=== PATIENT | female | born 1960 | race Hispanic/Latino ===

== ENCOUNTER 2020-02-09 14:39 | Inpatient (IN) | payer SELFPAY ==
[~2020-02-09] VITALS: Ht 154.9 cm; Wt 99.2 kg
[2020-02-09 16:42] LABS: CREATININE 0.8 mg/dL (0.5-1.5); POTASSIUM 3.8 mmol/L (3.5-5.1)
[2020-02-09 16:49] LABS: ALBUMIN 3.2 g/dL (3.5-5.0); BILIRUBIN,TOTAL 3.5 mg/dL (0.2-1.0); TOTAL PROTEIN, SERUM 6.7 g/dL (6.0-8.3)
[2020-02-09 17:24] LABS: APPEARANCE,URINE Clear (CLEAR); BILIRUBIN,URINE Small (NEGATIVE); COLOR,URINE Dark Yellow (YELLOW); GLUCOSE, URINE (UA) Negative (NEGATIVE); KETONES,URINE Negative (NEGATIVE); LEUKOCYTE ESTERASE ,URINE Negative (NEGATIVE); NITRATE,URINE Negative (NEGATIVE); OCCULT BLOOD,URINE Trace (NEGATIVE); PROTEIN,URINE POS 1+ mg/dL (NEGATIVE)
[2020-02-09 17:29] LABS: INR 0.96 (0.85-1.15); PARTIAL THROMBOPLASTIN TIME 21.4 SEC (26.3-35.5); PROTHROMBIN TIME 10.4 SEC (9.6-11.6)
[2020-02-09 17:31] LABS: BASOPHILS % (AUTO) 0.7 % (0.0-5.0); EOSINOPHILS % (AUTO) 1.4 % (0.0-8.0); LYMPHOCYTES % (AUTO) 9.4 % (21.0-51.0); MEAN CORPUSCULAR HEMOGLOBIN 51.4 pg (27.0-33.0); MEAN CORPUSCULAR HGB CONC 41.4 g/dL (32.0-36.0); MEAN CORPUSCULAR VOLUME 124.3 fL (79-99); MONOCYTES % (AUTO) 8.1 % (3.0-13.0); NEUTROPHILS % (AUTO) 72.5 % (40.0-77.0); NUCLEATED RED BLOOD CELLS 14.3 % (0.0-0.19); PLATELET COUNT (AUTO) 134 K/uL (130-400); RED CELL DISTRIBUTION WIDTH 34.1 % (11.0-15.5); WHITE BLOOD COUNT (AUTO) 8.1 K/uL (4.8-10.8)
[2020-02-09 17:33] LABS: HEMATOCRIT 8.7 % (36-48)
[2020-02-09 17:49] LABS: BACTERIA,URINE Rare /HPF (None Seen); RBC,URINE 0-1 /HPF (0-1); SQUAMOUS EPITHELIAL CELL,UR Few /HPF (0-2); WBC,URINE 0-1 /HPF (0-1)
[2020-02-09 18:04] LABS: BAND NEUTROPHILS % (MANUAL) 19 % (0-2); EOSINOPHILS % (MANUAL) 2 % (1-6); LYMPHOCYTES % (MANUAL) 5 % (22-44); MAN.DIFF COMMENT-IMPRESSION MANUAL DIFFERENTIAL; REACTIVE LYMPHOCYTES 3 % (0-0); SEGMENTED NEUTROPHILS % 71 % (40-70)
[2020-02-09 18:08] LABS: PLATELET MORPHOLOGY COMMENT LARGE PLTS PRESENT
[2020-02-09] MEDS ORDERED: ONDANSETRON HCL 4 MG/2 ML VIAL IV PRN (18:30)
[2020-02-09] MEDS: LACTATED RINGERS 1000ML 1,000 ML IV SCH (20:00)
[2020-02-09] MEDS ORDERED: LACTATED RINGERS 1000ML 1,000 ML IV ONE (20:09)
[2020-02-09] MEDS: PANTOPRAZOLE 40 MG/VIAL IVP SCH (21:00)
[2020-02-09 23:45] VITALS: BP 132/69
[2020-02-10] MEDS ORDERED: AZIT250T PO (00:57)
[2020-02-10] MEDS ORDERED: GUAI-966 PO (00:57)
[2020-02-10] MEDS ORDERED: MECO10005 PO (00:57)
[2020-02-10] MEDS ORDERED: CHOL200012 PO (00:57)
[2020-02-10] MEDS ORDERED: LEVO150T11 PO (00:57)
[2020-02-10] MEDS ORDERED: FERR325T22 PO (00:57)
[2020-02-10 04:57] VITALS: BP 133/69
[2020-02-10 06:03] LABS: BASOPHILS % (AUTO) 0.4 % (0.0-5.0); MEAN CORPUSCULAR HEMOGLOBIN 53.2 pg (27.0-33.0); MEAN CORPUSCULAR HGB CONC 42.3 g/dL (32.0-36.0); MEAN CORPUSCULAR VOLUME 125.8 fL (79-99); MONOCYTES % (AUTO) 10.5 % (3.0-13.0); NEUTROPHILS % (AUTO) 73.2 % (40.0-77.0); NUCLEATED RED BLOOD CELLS 20.2 % (0.0-0.19); PLATELET COUNT (AUTO) 122 K/uL (130-400); RED BLOOD CELL COUNT(AUTO) 0.62 MIL/uL (4.00-5.50); RED CELL DISTRIBUTION WIDTH 32.9 % (11.0-15.5)
[2020-02-10 06:11] LABS: HEMATOCRIT 7.8 % (36-48)
[2020-02-10 06:24] LABS: ALBUMIN 2.9 g/dL (3.5-5.0); BILIRUBIN,TOTAL 3.8 mg/dL (0.2-1.0); CREATININE 0.7 mg/dL (0.5-1.5); POTASSIUM 3.6 mmol/L (3.5-5.1); THYROID STIMULATING HORMONE 4.39 uIU/mL (0.36-3.74); TOTAL PROTEIN, SERUM 6.2 g/dL (6.0-8.3)
[2020-02-10 07:30] VITALS: BP 133/57
[2020-02-10] MEDS: PANTOPRAZOLE 40 MG/VIAL IVP SCH ×2 (09:37→20:29)
--- NOTE | 2020-02-10 10:05 | NUR ---
GI CONSULT DR DUBOIS IN TO SEE PT
[2020-02-10 11:16] VITALS: BP 127/42
[2020-02-10] MEDS ORDERED: ACETAMINOPHEN 325 MG TAB PO PRN ×2 (11:45)
[2020-02-10] MEDS ORDERED: COMPOUND IV MISC 1 EACH IVSOLN MISC PRN (12:45)
[2020-02-10] MEDS ORDERED: COMPOUND IV REFRIGERATED 1 EACH IVSOLN MISC PRN (12:45)
[2020-02-10] MEDS: DEXAMETHASONE 10MG/ML 1ML VIAL 40 MG in SODIUM CHLORIDE 0.9% 50 ML IV SCH (14:52)
[2020-02-10] MEDS: FOLIC ACID 1 MG TABLET PO SCH (14:52)
[2020-02-10 16:00] VITALS: BP 119/53
[2020-02-10] MEDS: LACTATED RINGERS 1000ML 1,000 ML IV SCH ×2 (16:00→20:33)
--- NOTE | 2020-02-10 19:08 | NUR ---
INITIAL SW spoke with patient. Patient lives with daughter, Corrine. Patient unable to remember daughter's contact information. No home services or DME. Patient is able to complete ADL's independently and drives. PCP is Dr. Rosalie Powers. Pharmacy is [facility] in [place]. DCP is home. Patient has no insurance or benefits. She is a [place] citizen and has worked in the [place]. SW educated patient on [employer] $4 medication program and [facility] $5 medication program. Patient is being assisted by [employer] for financial matters. Addendum: 02/10/20 at 1911 by SATYA VELEZ Amended: Links added.
[2020-02-10 19:15] VITALS: BP 124/66
--- NOTE | 2020-02-10 19:15 | NUR ---
ASSESSMENT PT AAOX4, PLEASANT, COOPERATIVE, DENIES ANY PAIN, DENIES CHEST PAIN, S.O.B. NOTED WITH ACTIVITY. UP TO CHAIR WITHOUT ASSISTANCE, ASSESSMENT COMPLETED, SEE FLOW SHEET.
[2020-02-10 23:21] VITALS: BP 127/64
[2020-02-11 03:52] VITALS: BP 128/55
[2020-02-11] MEDS: LEVOTHYROXINE 150 MCG TABLET PO SCH ×2 (05:38→08:39)
[2020-02-11 06:37] LABS: ALBUMIN 2.7 g/dL (3.5-5.0); BILIRUBIN,TOTAL 4.4 mg/dL (0.2-1.0); CREATININE 0.7 mg/dL (0.5-1.5); POTASSIUM 3.7 mmol/L (3.5-5.1)
[2020-02-11 07:56] VITALS: BP 137/72
[2020-02-11] MEDS: PANTOPRAZOLE 40 MG/VIAL IVP SCH ×2 (08:39→20:20)
[2020-02-11] MEDS: CYANOCOBALAMIN (VITAMIN B-12) 1,000 MCG TABLET PO SCH (08:39)
[2020-02-11] MEDS: DEXAMETHASONE 10MG/ML 1ML VIAL 40 MG in SODIUM CHLORIDE 0.9% 50 ML IV SCH (08:39)
[2020-02-11] MEDS: FOLIC ACID 1 MG TABLET PO SCH (08:39)
[2020-02-11] MEDS: CHOLECALCIFEROL 50 MCG PO SCH (09:00)
[2020-02-11 11:46] VITALS: BP 135/68
[2020-02-11 11:49] LABS: BASOPHILS % (AUTO) 0.3 % (0.0-5.0); EOSINOPHILS % (AUTO) 0.3 % (0.0-8.0); LYMPHOCYTES % (AUTO) 7.1 % (21.0-51.0); MEAN CORPUSCULAR HEMOGLOBIN 49.2 pg (27.0-33.0); MEAN CORPUSCULAR HGB CONC 37.6 g/dL (32.0-36.0); MEAN CORPUSCULAR VOLUME 130.8 fL (79-99); MONOCYTES % (AUTO) 6.4 % (3.0-13.0); NEUTROPHILS % (AUTO) 79.9 % (40.0-77.0); NUCLEATED RED BLOOD CELLS 18.5 % (0.0-0.19); PLATELET COUNT (AUTO) 118 K/uL (130-400); RED BLOOD CELL COUNT(AUTO) 0.65 MIL/uL (4.00-5.50); WHITE BLOOD COUNT (AUTO) 8.7 K/uL (4.8-10.8)
[2020-02-11 11:55] LABS: HEMATOCRIT 8.5 % (36-48)
[2020-02-11 12:29] LABS: BAND NEUTROPHILS % (MANUAL) 4 % (0-2); LYMPHOCYTES % (MANUAL) 15 % (22-44); MAN.DIFF COMMENT-IMPRESSION MANUAL DIFFERENTIAL; MONOCYTES % (MANUAL) 11 % (2-9); PLATELET MORPHOLOGY COMMENT SLIGHTLY DECREASED; SEGMENTED NEUTROPHILS % 70 % (40-70)
[2020-02-11 15:38] VITALS: BP 126/59
[2020-02-11 16:48] VITALS: BP 97/60
[2020-02-11 20:00] VITALS: BP 130/72
[2020-02-12] VITALS (8 sets, daily range): BP systolic 100–151; BP diastolic 42–76
[2020-02-12 05:56] LABS: BASOPHILS % (AUTO) 0.3 % (0.0-5.0); EOSINOPHILS % (AUTO) 0.2 % (0.0-8.0); LYMPHOCYTES % (AUTO) 8.1 % (21.0-51.0); MEAN CORPUSCULAR HEMOGLOBIN 43.8 pg (27.0-33.0); MEAN CORPUSCULAR HGB CONC 34.4 g/dL (32.0-36.0); MEAN CORPUSCULAR VOLUME 127.1 fL (79-99); MONOCYTES % (AUTO) 5.8 % (3.0-13.0); NEUTROPHILS % (AUTO) 79.2 % (40.0-77.0); NUCLEATED RED BLOOD CELLS 21.5 % (0.0-0.19); PLATELET COUNT (AUTO) 129 K/uL (130-400); RED BLOOD CELL COUNT(AUTO) 0.96 MIL/uL (4.00-5.50); WHITE BLOOD COUNT (AUTO) 10.9 K/uL (4.8-10.8)
[2020-02-12 06:06] LABS: HEMATOCRIT 12.2 % (36-48)
[2020-02-12 06:25] LABS: ALBUMIN 2.8 g/dL (3.5-5.0); BILIRUBIN,TOTAL 3.1 mg/dL (0.2-1.0); CREATININE 0.9 mg/dL (0.5-1.5); POTASSIUM 3.7 mmol/L (3.5-5.1)
[2020-02-12] MEDS: CHOLECALCIFEROL 50 MCG PO SCH (09:00)
[2020-02-12] MEDS: FOLIC ACID 1 MG TABLET PO SCH (09:03)
[2020-02-12] MEDS: DEXAMETHASONE 10MG/ML 1ML VIAL 40 MG in SODIUM CHLORIDE 0.9% 50 ML IV SCH (09:03)
[2020-02-12] MEDS: LEVOTHYROXINE 150 MCG TABLET PO SCH (09:03)
[2020-02-12] MEDS: CYANOCOBALAMIN (VITAMIN B-12) 1,000 MCG TABLET PO SCH (09:03)
[2020-02-12] MEDS: PANTOPRAZOLE 40 MG/VIAL IVP SCH ×2 (09:03→21:54)
--- NOTE | 2020-02-12 10:10 | NUR ---
REPORT GIVEN TO VANDANA, PATIENT AT THIS TIME AAOX3, CONTINUES WITH O2 @ 2LPM VIA NC. NO SIGNS AND SYMPTOMS OF DISTRESS. PATIENT TRANSPORTED TO ROOM 424 WITH TELE BOX.
[2020-02-13 04:19] VITALS: BP 101/56
[2020-02-13 06:17] LABS: ALBUMIN 2.7 g/dL (3.5-5.0); BILIRUBIN,TOTAL 3.1 mg/dL (0.2-1.0); CREATININE 0.5 mg/dL (0.5-1.5); POTASSIUM 3.4 mmol/L (3.5-5.1); TOTAL PROTEIN, SERUM 5.8 g/dL (6.0-8.3)
[2020-02-13] MEDS: LEVOTHYROXINE 150 MCG TABLET PO SCH (06:27)
[2020-02-13 07:00] VITALS: BP 112/48
[2020-02-13] MEDS: CYANOCOBALAMIN (VITAMIN B-12) 1,000 MCG TABLET PO SCH (08:56)
[2020-02-13] MEDS: FOLIC ACID 1 MG TABLET PO SCH (08:56)
[2020-02-13] MEDS: PANTOPRAZOLE 40 MG/VIAL IVP SCH ×2 (08:56→20:35)
[2020-02-13] MEDS: CHOLECALCIFEROL 50 MCG PO SCH (08:57)
[2020-02-13] MEDS: DEXAMETHASONE 10MG/ML 1ML VIAL 40 MG in SODIUM CHLORIDE 0.9% 50 ML IV SCH (08:57)
[2020-02-13 09:38] LABS: BASOPHILS % (AUTO) 0.2 % (0.0-5.0); EOSINOPHILS % (AUTO) 0.1 % (0.0-8.0); LYMPHOCYTES % (AUTO) 10.3 % (21.0-51.0); MEAN CORPUSCULAR HEMOGLOBIN 38.7 pg (27.0-33.0); MEAN CORPUSCULAR HGB CONC 31.2 g/dL (32.0-36.0); MEAN CORPUSCULAR VOLUME 124.3 fL (79-99); MONOCYTES % (AUTO) 5.5 % (3.0-13.0); NEUTROPHILS % (AUTO) 77.6 % (40.0-77.0); NUCLEATED RED BLOOD CELLS 24.9 % (0.0-0.19); PLATELET COUNT (AUTO) 116 K/uL (130-400); RED BLOOD CELL COUNT(AUTO) 1.11 MIL/uL (4.00-5.50); RED CELL DISTRIBUTION WIDTH 33.2 % (11.0-15.5); WHITE BLOOD COUNT (AUTO) 8.7 K/uL (4.8-10.8)
[2020-02-13 09:59] LABS: HEMATOCRIT 13.8 % (36-48)
[2020-02-13 10:00] LABS: ALBUMIN 2.7 g/dL (3.5-5.0); BILIRUBIN,DIRECT 1.1 mg/dL (0.0-0.3); BILIRUBIN,TOTAL 3.5 mg/dL (0.2-1.0); CREATININE 0.7 mg/dL (0.5-1.5); POTASSIUM 3.2 mmol/L (3.5-5.1); TOTAL PROTEIN, SERUM 5.7 g/dL (6.0-8.3)
[2020-02-13 10:17] LABS: BAND NEUTROPHILS % (MANUAL) 3 % (0-2); LYMPHOCYTES % (MANUAL) 3 % (22-44); MONOCYTES % (MANUAL) 2 % (2-9); SEGMENTED NEUTROPHILS % 92 % (40-70)
[2020-02-13 10:18] LABS: MAN.DIFF COMMENT-IMPRESSION MANUAL DIFFERENTIAL; PLATELET MORPHOLOGY COMMENT SLIGHTLY DECREASED
[2020-02-13 12:09] VITALS: BP 117/36
[2020-02-13 16:00] VITALS: BP 103/57
[2020-02-13 20:00] VITALS: BP 98/38
[2020-02-13 23:32] VITALS: BP 133/65
[2020-02-14 03:53] VITALS: BP 133/59
[2020-02-14] MEDS: LEVOTHYROXINE 150 MCG TABLET PO SCH (05:32)
[2020-02-14 07:41] LABS: MEAN CORPUSCULAR HEMOGLOBIN 41.6 pg (27.0-33.0); MEAN CORPUSCULAR HGB CONC 32.6 g/dL (32.0-36.0); MEAN CORPUSCULAR VOLUME 127.4 fL (79-99); NUCLEATED RED BLOOD CELLS 21.3 % (0.0-0.19); PLATELET COUNT (AUTO) 114 K/uL (130-400); RED BLOOD CELL COUNT(AUTO) 1.13 MIL/uL (4.00-5.50); RED CELL DISTRIBUTION WIDTH 33.4 % (11.0-15.5); WHITE BLOOD COUNT (AUTO) 7.5 K/uL (4.8-10.8)
[2020-02-14 07:57] LABS: CREATININE 0.7 mg/dL (0.5-1.5); POTASSIUM 3.5 mmol/L (3.5-5.1)
[2020-02-14 08:14] LABS: BAND NEUTROPHILS % (MANUAL) 1 % (0-2); EOSINOPHILS % (MANUAL) 1 % (1-6); LYMPHOCYTES % (MANUAL) 6 % (22-44); MAN.DIFF COMMENT-IMPRESSION MANUAL DIFFERENTIAL; MONOCYTES % (MANUAL) 10 % (2-9); SEGMENTED NEUTROPHILS % 82 % (40-70)
[2020-02-14 08:15] LABS: PLATELET MORPHOLOGY COMMENT SLIGHTLY DECREASED
[2020-02-14 08:22] LABS: HEMATOCRIT 14.4 % (36-48)
[2020-02-14] MEDS: FOLIC ACID 1 MG TABLET PO SCH (08:37)
[2020-02-14] MEDS: CYANOCOBALAMIN (VITAMIN B-12) 1,000 MCG TABLET PO SCH (08:37)
[2020-02-14] MEDS: DEXAMETHASONE 10MG/ML 1ML VIAL 40 MG in SODIUM CHLORIDE 0.9% 50 ML IV SCH (08:38)
[2020-02-14] MEDS: CHOLECALCIFEROL 50 MCG PO SCH (08:38)
[2020-02-14] MEDS: PANTOPRAZOLE 40 MG/VIAL IVP SCH ×2 (08:38→20:33)
[2020-02-14 09:00] VITALS: BP 132/41
[2020-02-14 12:11] VITALS: BP 126/41
[2020-02-14 16:12] VITALS: BP 115/46
[2020-02-14 19:33] VITALS: BP 118/61
[2020-02-14 23:41] VITALS: BP 122/71
[2020-02-15 03:58] VITALS: BP 109/55
[2020-02-15 04:45] LABS: BASOPHILS % (AUTO) 0.2 % (0.0-5.0); EOSINOPHILS % (AUTO) 0.1 % (0.0-8.0); LYMPHOCYTES % (AUTO) 5.9 % (21.0-51.0); MEAN CORPUSCULAR HEMOGLOBIN 40.8 pg (27.0-33.0); MEAN CORPUSCULAR VOLUME 127.5 fL (79-99); MONOCYTES % (AUTO) 4.5 % (3.0-13.0); NEUTROPHILS % (AUTO) 87.5 % (40.0-77.0); NUCLEATED RED BLOOD CELLS 17.3 % (0.0-0.19); PLATELET COUNT (AUTO) 105 K/uL (130-400); RED CELL DISTRIBUTION WIDTH 33.1 % (11.0-15.5); WHITE BLOOD COUNT (AUTO) 9.9 K/uL (4.8-10.8)
[2020-02-15 05:08] LABS: HEMATOCRIT 15.3 % (36-48)
[2020-02-15] MEDS: LEVOTHYROXINE 150 MCG TABLET PO SCH (05:31)
[2020-02-15 05:38] LABS: ALBUMIN 2.7 g/dL (3.5-5.0); BILIRUBIN,TOTAL 5.4 mg/dL (0.2-1.0); CREATININE 0.8 mg/dL (0.5-1.5); POTASSIUM 3.6 mmol/L (3.5-5.1); TOTAL PROTEIN, SERUM 5.7 g/dL (6.0-8.3)
[2020-02-15 07:00] VITALS: BP 115/44
[2020-02-15] MEDS: CHOLECALCIFEROL 50 MCG PO SCH (09:00)
[2020-02-15] MEDS: FOLIC ACID 1 MG TABLET PO SCH (09:39)
[2020-02-15] MEDS: PANTOPRAZOLE 40 MG/VIAL IVP SCH ×2 (09:40→19:56)
[2020-02-15] MEDS: CYANOCOBALAMIN (VITAMIN B-12) 1,000 MCG TABLET PO SCH (09:40)
[2020-02-15] MEDS ORDERED: PHARMACY COMMUNICATION MISC SCH (10:45)
[2020-02-15 11:00] VITALS: BP 147/95
[2020-02-15] MEDS: DEXAMETHASONE 10MG/ML 1ML VIAL 40 MG in SODIUM CHLORIDE 0.9% 50 ML IV SCH (11:14)
[2020-02-15] MEDS ORDERED: VANCOMYCIN PROTOCOL PER PHARMACY IV SCH (12:00)
--- NOTE | 2020-02-15 12:05 | NUR ---
Dr. thompson aware of fever of 103.[address] carnes aware.
[2020-02-15] MEDS ORDERED: COMPOUND IV REFRIGERATED 1 EACH IVSOLN MISC PRN (12:30)
[2020-02-15] MEDS: VANCOMYCIN 1.25 GM in SODIUM CHLORIDE 0.9% 250 ML IV SCH (13:30)
[2020-02-15 13:50] LABS: APPEARANCE,URINE SL CLOUDY (CLEAR); BILIRUBIN,URINE MODERATE (NEGATIVE); COLOR,URINE YELLOW (YELLOW); GLUCOSE, URINE (UA) NEGATIVE (NEGATIVE); KETONES,URINE NEGATIVE (NEGATIVE); LEUKOCYTE ESTERASE ,URINE TRACE (NEGATIVE); NITRATE,URINE POSITIVE (NEGATIVE); OCCULT BLOOD,URINE SMALL (NEGATIVE); PROTEIN,URINE 30 mg/dL (NEGATIVE); UROBILINOGEN,URINE >=8.0 mg/dL (0.2-1.0)
[2020-02-15 14:20] LABS: BACTERIA,URINE Moderate /HPF (None Seen); MUCUS,URINE Few LPF (None Seen); SQUAMOUS EPITHELIAL CELL,UR Few /HPF (0-2)
[2020-02-15 16:00] VITALS: BP 126/56
[2020-02-15 19:00] VITALS: BP 111/61
[2020-02-15] MEDS ORDERED: RENAL DOSE IV SCH (19:15)
[2020-02-15] MEDS: ZOSYN 3.375GM+NS 50ML 50 ML IV SCH (19:56)
[2020-02-15] MEDS: IMMUNE GLOBULIN GAMMA 10% IV SCH (21:51)
[2020-02-15] MEDS: DiphenhydrAMINE HCL 50 MG/ML VIAL IV PRN (21:51)
[2020-02-15 23:00] VITALS: BP 112/43
[2020-02-16] MEDS: VANCOMYCIN 1.25 GM in SODIUM CHLORIDE 0.9% 250 ML IV SCH (01:00)
[2020-02-16 03:00] VITALS: BP 143/68
[2020-02-16] MEDS: ZOSYN 3.375GM+NS 50ML 50 ML IV SCH ×3 (03:39→21:48)
--- NOTE | 2020-02-16 04:47 | NUR ---
Patient started on IVIG per orders. Tolerated well. No s/s of allergic reaction. Denies increase of sob. Denies pain. IV site cdi, patent.Will continue to monitor.
[2020-02-16] MEDS: LEVOTHYROXINE 150 MCG TABLET PO SCH (05:29)
[2020-02-16 07:12] LABS: LYMPHOCYTES % (AUTO) 4.6 % (21.0-51.0); MEAN CORPUSCULAR HEMOGLOBIN 44.6 pg (27.0-33.0); MEAN CORPUSCULAR HGB CONC 34.6 g/dL (32.0-36.0); MEAN CORPUSCULAR VOLUME 128.9 fL (79-99); MONOCYTES % (AUTO) 5.7 % (3.0-13.0); NEUTROPHILS % (AUTO) 87.9 % (40.0-77.0); NUCLEATED RED BLOOD CELLS 4.6 % (0.0-0.19); PLATELET COUNT (AUTO) 101 K/uL (130-400); RED BLOOD CELL COUNT(AUTO) 0.83 MIL/uL (4.00-5.50); RED CELL DISTRIBUTION WIDTH 31.9 % (11.0-15.5); WHITE BLOOD COUNT (AUTO) 8.4 K/uL (4.8-10.8)
[2020-02-16 07:23] LABS: HEMATOCRIT 10.7 % (36-48)
[2020-02-16 07:31] LABS: ALBUMIN 2.4 g/dL (3.5-5.0); BILIRUBIN,TOTAL 3.3 mg/dL (0.2-1.0); POTASSIUM 3.9 mmol/L (3.5-5.1); TOTAL PROTEIN, SERUM 7.1 g/dL (6.0-8.3)
[2020-02-16 08:11] VITALS: BP 115/48
--- NOTE | 2020-02-16 08:20 | NUR ---
DONNA SUTTON MOLD PARTER; CRITICAL H/H 3.7/10.7 SPOKE WITH [facility].
--- NOTE | 2020-02-16 08:50 | NUR ---
DR. GOINS CALLED BACK ORDERS ENTERED.
[2020-02-16] MEDS: CHOLECALCIFEROL 50 MCG PO SCH (08:56)
[2020-02-16] MEDS: CYANOCOBALAMIN (VITAMIN B-12) 1,000 MCG TABLET PO SCH (08:56)
[2020-02-16] MEDS: FOLIC ACID 1 MG TABLET PO SCH (08:56)
[2020-02-16] MEDS: DEXAMETHASONE 10MG/ML 1ML VIAL 40 MG in SODIUM CHLORIDE 0.9% 50 ML IV SCH (08:56)
[2020-02-16] MEDS: PANTOPRAZOLE 40 MG/VIAL IVP SCH ×2 (08:56→21:48)
[2020-02-16 09:48] LABS: RETICULOCYTE % (AUTO) 21.37 % (0.42-2.23)
[2020-02-16 11:44] VITALS: BP 126/49
[2020-02-16] MEDS ORDERED: PHARMACY COMMUNICATION MISC SCH (13:30)
[2020-02-16] MEDS ORDERED: DiphenhydrAMINE HCL 50 MG/ML VIAL IV PRN (13:30)
[2020-02-16] MEDS: DiphenhydrAMINE HCL 50 MG/ML VIAL IV PRN (14:38)
[2020-02-16] MEDS: FUROSEMIDE 10 MG/ML 2ML VIAL IV SCH ×2 (14:39→19:19)
--- NOTE | 2020-02-16 14:45 | NUR ---
1ST BLOOD TRANSFUSION STARTED CONSENT SIGNED, ORDERED BY DR. GOINS AWARE OF NO BLOOD MATCH.
[2020-02-16 15:11] LABS: HEPATITIS A ANTIBODY IGM Negative (Negative); HEPATITIS B CORE IGM Negative (Negative); HEPATITIS Bs ANTIGEN SCREEN P Non Reactive (Negative)
[2020-02-16 16:00] VITALS: BP 138/70
--- NOTE | 2020-02-16 19:00 | NUR ---
1ST UNIT OF PRBC COMPLETE NO REACTION DENIES ANY DISTRESS. NO FEVERS.
[2020-02-16 19:11] VITALS: BP 130/65
[2020-02-16] MEDS: IMMUNE GLOBULIN GAMMA 10% IV SCH (21:45)
[2020-02-16 23:24] VITALS: BP 125/69
[2020-02-17 03:07] VITALS: BP 130/74
[2020-02-17] MEDS: ZOSYN 3.375GM+NS 50ML 50 ML IV SCH (03:21)
[2020-02-17 05:24] LABS: MEAN CORPUSCULAR HEMOGLOBIN 41.7 pg (27.0-33.0); MEAN CORPUSCULAR HGB CONC 34.2 g/dL (32.0-36.0); MEAN CORPUSCULAR VOLUME 121.7 fL (79-99); NUCLEATED RED BLOOD CELLS 9.2 % (0.0-0.19); RED BLOOD CELL COUNT(AUTO) 1.2 MIL/uL (4.00-5.50); RED CELL DISTRIBUTION WIDTH 31.9 % (11.0-15.5); WHITE BLOOD COUNT (AUTO) 6.6 K/uL (4.8-10.8)
[2020-02-17 05:35] LABS: HEMATOCRIT 14.6 % (36-48)
[2020-02-17 05:40] LABS: POTASSIUM 3.5 mmol/L (3.5-5.1)
[2020-02-17 05:41] LABS: CREATININE 0.9 mg/dL (0.5-1.5)
[2020-02-17] MEDS: LEVOTHYROXINE 150 MCG TABLET PO SCH (06:12)
[2020-02-17 08:00] VITALS: BP 133/73
[2020-02-17] MEDS: CHOLECALCIFEROL 50 MCG PO SCH ×2 (08:38→08:46)
[2020-02-17] MEDS: CYANOCOBALAMIN (VITAMIN B-12) 1,000 MCG TABLET PO SCH (08:38)
[2020-02-17] MEDS: PANTOPRAZOLE 40 MG/VIAL IVP SCH ×2 (08:38→20:26)
[2020-02-17] MEDS: FOLIC ACID 1 MG TABLET PO SCH (08:38)
[2020-02-17] MEDS: DEXAMETHASONE 10MG/ML 1ML VIAL 40 MG in SODIUM CHLORIDE 0.9% 50 ML IV SCH (09:13)
[2020-02-17 12:00] VITALS: BP 137/85
[2020-02-17] MEDS ORDERED: POTASSIUM CHLORIDE 20MEQ/100ML 100 ML IV PRN (12:30)
[2020-02-17] MEDS ORDERED: FLUCONAZOLE 100 MG TAB PO SCH (12:30)
[2020-02-17] MEDS ORDERED: LIDOCAINE HCL-MPF 1% 2ML VIAL IV PRN (12:30)
[2020-02-17] MEDS ORDERED: POTASSIUM CHLORIDE 10% ELIXIR 20 MEQ/15 ML UDCUP PO PRN (12:30)
[2020-02-17] MEDS: CEPHALEXIN 500 MG CAPSULE PO SCH ×2 (13:01→18:49)
[2020-02-17] MEDS: POTASSIUM CHLORIDE 20 MEQ ERTAB PO PRN ×2 (15:10→18:49)
[2020-02-17 16:00] VITALS: BP 146/76
[2020-02-17 18:55] VITALS: BP 126/68
[2020-02-17 23:35] VITALS: BP 126/61
[2020-02-18] MEDS: CEPHALEXIN 500 MG CAPSULE PO SCH ×3 (03:28→21:34)
[2020-02-18 03:37] VITALS: BP 135/74
[2020-02-18 05:21] LABS: BASOPHILS % (AUTO) 0.2 % (0.0-5.0); LYMPHOCYTES % (AUTO) 7.3 % (21.0-51.0); MEAN CORPUSCULAR HEMOGLOBIN 43.2 pg (27.0-33.0); MEAN CORPUSCULAR HGB CONC 35.7 g/dL (32.0-36.0); MEAN CORPUSCULAR VOLUME 120.9 fL (79-99); MONOCYTES % (AUTO) 6.2 % (3.0-13.0); NEUTROPHILS % (AUTO) 83.6 % (40.0-77.0); NUCLEATED RED BLOOD CELLS 5.7 % (0.0-0.19); PLATELET COUNT (AUTO) 119 K/uL (130-400); RED BLOOD CELL COUNT(AUTO) 1.39 MIL/uL (4.00-5.50); RED CELL DISTRIBUTION WIDTH 30.7 % (11.0-15.5); WHITE BLOOD COUNT (AUTO) 6.6 K/uL (4.8-10.8)
[2020-02-18 05:33] LABS: HEMATOCRIT 16.8 % (36-48)
[2020-02-18 05:35] LABS: CREATININE 0.8 mg/dL (0.5-1.5); MAGNESIUM 2.1 mg/dL (1.80-2.40); PHOSPHORUS 3.8 mg/dL (2.5-4.9); POTASSIUM 4.2 mmol/L (3.5-5.1)
[2020-02-18] MEDS: LEVOTHYROXINE 150 MCG TABLET PO SCH (05:48)
[2020-02-18 08:00] VITALS: BP 143/77
[2020-02-18] MEDS: FOLIC ACID 1 MG TABLET PO SCH (09:00)
[2020-02-18] MEDS: FLUCONAZOLE 100 MG TAB PO SCH (09:00)
[2020-02-18] MEDS: CHOLECALCIFEROL 50 MCG PO SCH (09:00)
[2020-02-18] MEDS: PANTOPRAZOLE 40 MG/VIAL IVP SCH ×2 (09:00→21:34)
[2020-02-18] MEDS: CYANOCOBALAMIN (VITAMIN B-12) 1,000 MCG TABLET PO SCH (09:00)
[2020-02-18] MEDS: DEXAMETHASONE 10MG/ML 1ML VIAL 40 MG in SODIUM CHLORIDE 0.9% 50 ML IV SCH (11:07)
[2020-02-18 11:29] VITALS: BP 139/73
--- NOTE | 2020-02-18 13:29 | NUR ---
RE: BONE MARROW ASP/BX PATIENT HAD LUNCH AND 1230. DR Salvador ENRIQUEZ NOTIFIED OF PROCEDURE AND RESCHEDULED FOR TOMORROW IN AM. THIEN BRYAN NOTIFIED OF PROCEDURE OUTCOME.
[2020-02-18 16:00] VITALS: BP 136/76
[2020-02-18 19:25] VITALS: BP 135/68
[2020-02-18 23:10] VITALS: BP 147/75
[2020-02-19] MEDS: CEPHALEXIN 500 MG CAPSULE PO SCH ×3 (03:02→21:27)
[2020-02-19 03:53] VITALS: BP 156/85
[2020-02-19] MEDS: LEVOTHYROXINE 150 MCG TABLET PO SCH (05:37)
[2020-02-19 05:42] LABS: MEAN CORPUSCULAR HEMOGLOBIN 41.1 pg (27.0-33.0); MEAN CORPUSCULAR HGB CONC 34.8 g/dL (32.0-36.0); MEAN CORPUSCULAR VOLUME 117.9 fL (79-99); NUCLEATED RED BLOOD CELLS 5.6 % (0.0-0.19); RED BLOOD CELL COUNT(AUTO) 1.68 MIL/uL (4.00-5.50); RED CELL DISTRIBUTION WIDTH 29.4 % (11.0-15.5); WHITE BLOOD COUNT (AUTO) 5.5 K/uL (4.8-10.8)
[2020-02-19 06:02] LABS: HEMATOCRIT 19.8 % (36-48)
[2020-02-19] MEDS: PANTOPRAZOLE 40 MG/VIAL IVP SCH ×2 (07:19→21:27)
[2020-02-19] MEDS: CHOLECALCIFEROL 50 MCG PO SCH (07:19)
[2020-02-19] MEDS: CYANOCOBALAMIN (VITAMIN B-12) 1,000 MCG TABLET PO SCH (07:19)
[2020-02-19] MEDS: FOLIC ACID 1 MG TABLET PO SCH ×2 (07:19→11:36)
[2020-02-19] MEDS: FLUCONAZOLE 100 MG TAB PO SCH ×2 (07:19→11:36)
[2020-02-19 08:00] VITALS: BP 141/66
--- NOTE | 2020-02-19 08:00 | NUR ---
ASSESSMENT PT IS AAOX3 DENIES CP DENIES SOB DENIES NV NO COMPLAINTS SITTING UPRIGHT IN BED. CALL LIGHT WITHIN REACH. NPO STATUS FOR BONE MARROW BX
[2020-02-19] MEDS: DEXAMETHASONE 10MG/ML 1ML VIAL 40 MG in SODIUM CHLORIDE 0.9% 50 ML IV SCH (08:36)
[2020-02-19] MEDS ORDERED: FENTANYL CITRATE PF 50 MCG/1 ML 2ML VIAL ONE (11:00)
[2020-02-19] MEDS ORDERED: MIDAZOLAM HCL 1 MG/ML 2ML VIAL ONE (11:00)
--- NOTE | 2020-02-19 11:30 | NUR ---
CT GD BONE MARROW ASP/BX PROCEDURE PERFORMED BY DR Catarina PITTMAN. PUNCTURE SITE RT UPPER BUTTOCK AND PATIENT TOLERATED PROCEDURE WELL. SPECIMEN X 6 COLLECTED AND SENT TO LAB. END OF PROCEDURE AT 1110. BIOPSY NEEDLE REMOVED AND DRESSING APPLIED. NO BLEEDING NOTED. REPORT GIVEN TO Buzz ANTONY RN AND PATIENT TRANSPORTED TO [facility] VIA BED AT 1130. AAO X3 WITH NO C/O PAIN.
[2020-02-19 11:42] VITALS: BP 169/84
--- NOTE | 2020-02-19 15:28 | NUR ---
RDSCREEN - LOS X 10 Pt with autoimmune hemolytic anemia as per EMR. Pending CT of Bone Marrow per EMR. Pt tolerating Heart Healthy soft/Thurman diet order with no report of GI distress, Po intake at 100%. Pt LBM 02/18/20. Pt with Obesity Class III (BMI 41.1). Recommend resume diet order as medically feasible. RD to continue to monitor. Please notify as additional nutrition concerns arise. Thank you. Addendum: 02/19/20 at [address] Amended: Links added.
[2020-02-19 16:00] VITALS: BP 145/77
--- NOTE | 2020-02-19 17:25 | NUR ---
STATUS NO COMPLAINTS. RESTING IN BED. CALL LIGHT WITHIN REACH.
[2020-02-19 19:51] VITALS: BP 162/80
[2020-02-20 00:40] VITALS: BP 142/82
[2020-02-20 01:04] VITALS: BP 170/77
[2020-02-20 04:29] VITALS: BP 140/81
[2020-02-20] MEDS: LEVOTHYROXINE 150 MCG TABLET PO SCH (04:43)
[2020-02-20] MEDS: CEPHALEXIN 500 MG CAPSULE PO SCH ×2 (04:43→10:44)
[2020-02-20 05:17] LABS: HEMATOCRIT 22.6 % (36-48); MEAN CORPUSCULAR HEMOGLOBIN 42.3 pg (27.0-33.0); MEAN CORPUSCULAR HGB CONC 35.4 g/dL (32.0-36.0); MEAN CORPUSCULAR VOLUME 119.6 fL (79-99); NUCLEATED RED BLOOD CELLS 5.6 % (0.0-0.19); RED BLOOD CELL COUNT(AUTO) 1.89 MIL/uL (4.00-5.50); RED CELL DISTRIBUTION WIDTH 29.1 % (11.0-15.5); WHITE BLOOD COUNT (AUTO) 5.6 K/uL (4.8-10.8)
[2020-02-20 05:34] LABS: CREATININE 0.8 mg/dL (0.5-1.5)
[2020-02-20 08:00] VITALS: BP 139/79
[2020-02-20] MEDS ORDERED: PANTOPRAZOLE SODIUM 40 MG TABLET.DR PO SCH (10:01)
[2020-02-20] MEDS ORDERED: CEPH-578 PO (10:29)
[2020-02-20] MEDS: FLUCONAZOLE 100 MG TAB PO SCH (10:43)
[2020-02-20] MEDS: DEXAMETHASONE 10MG/ML 1ML VIAL 40 MG in SODIUM CHLORIDE 0.9% 50 ML IV SCH (10:44)
[2020-02-20] MEDS: CYANOCOBALAMIN (VITAMIN B-12) 1,000 MCG TABLET PO SCH (10:44)
[2020-02-20] MEDS: FOLIC ACID 1 MG TABLET PO SCH (10:44)
[2020-02-20 12:00] VITALS: BP 155/82
== END 2020-02-20 17:45 | disposition home or self-care (01) | DRG 809 ==
LOC: EDH 14:39 → EDHIP 14:40 → 2DH 22:17 → 4DH 02-12 10:21
PROVIDERS: ADMIT Internal Medicine; ATTEND Internal Medicine
PROC: 30233N1 Transfusion of Nonautologous Red Blood Cells into Peripheral Vein, Percutaneous Approach (ICD-10-PCS; principal; 2020-02-16)
PROC: 07DR3ZX Extraction of Iliac Bone Marrow, Percutaneous Approach, Diagnostic (ICD-10-PCS; 2020-02-19)
DX: D59.1 Other autoimmune hemolytic anemias (principal); R17 Unspecified jaundice; N39.0 Urinary tract infection, site not specified; Z68.41 Body mass index [BMI] 40.0-44.9, adult; D69.6 Thrombocytopenia, unspecified; R79.89 Other specified abnormal findings of blood chemistry; E66.01 Morbid (severe) obesity due to excess calories; B96.20 Unspecified Escherichia coli [E. coli] as the cause of diseases classified elsewhere; Z20.828 Contact with and (suspected) exposure to other viral communicable diseases; E03.9 Hypothyroidism, unspecified; I51.7 Cardiomegaly; Z87.442 Personal history of urinary calculi; Z90.5 Acquired absence of kidney; Z90.710 Acquired absence of both cervix and uterus; Z90.721 Acquired absence of ovaries, unilateral
CPT/HCPCS: 36415; 36430; 38222; 71045; 71046; 74181; 76700; 77012; 80048; 80053; 80074; 80076; 81001; 82248; 82270; 82607; 82746; 82948; 83615; 83735; 84100; 84145; 84443; 84484; 85025; 85027; 85045; 85610; 85730; 86156; 86850; 86860; 86870; 86880; 86900; 86901; 86902; 86905; 86906; 86922; 86978; 87040; 87077; 87088; 87186; 87635; 87804; 88184; 88185; 88305; 88311; 88313; 88341; 88342; 88360; 93005; 99152; 99153; C9113; G0378; J1100; J1200; J1572; J1940; J2250; J2543; J3010; J3370; J7050; J7120; P9016